=== PATIENT | male | born 1970 | race Caucasian/White ===

== ENCOUNTER 2022-01-27 01:55 | Emergency (ER) | payer BC ==
[2022-01-27] MEDS ORDERED: Aspirin 81 MG Tab.Chew PO ONE (02:34)
[2022-01-27] MEDS ORDERED: Nitroglycerin 0.4 MG Tab.SL SL PRN (02:35)
[2022-01-27] MEDS ORDERED: Sodium Chloride 0.9% 1,000 ML IV SCH (02:45)
== END 2022-01-27 03:05 ==
LOC: LB.ED 01:55
DX: R07.89 Other chest pain (principal); R06.02 Shortness of breath; I10 Essential (primary) hypertension; R79.81 Abnormal blood-gas level; Z79.899 Other long term (current) drug therapy
CPT/HCPCS: 93005; 96360; 99285; A9270; J7030; 93010; 99282